=== PATIENT | male | born 1965 | race Caucasian/White ===

== ENCOUNTER 2016-12-06 03:45 | Emergency (ER) | payer MEDICAID, MEDICARE, OTHER ==
[~2016-12-06] VITALS: Ht 172.7 cm; Wt 110.0 kg
[~2016-12-06 03:45] MED LIST: LISI-170 PO
[2016-12-06 03:46] VITALS: BP 160/95
[2016-12-06] MEDS ORDERED: ONDANSETRON ODT 4 MG ONE (04:16)
[2016-12-06] MEDS ORDERED: ONDANSETRON 2MG/ML, 2ML IVPush ONE (04:30)
[2016-12-06] MEDS ORDERED: SODIUM CHLORIDE 0.9% 1,000ML IVBOLUS ONE (04:30)
[2016-12-06] MEDS ORDERED: ONDANSETRON ODT 4 MG PO ONE (04:30)
[2016-12-06] MEDS ORDERED: MORPHINE SULFATE 4 MG/ML, 1ML IVPush PRN (04:30)
[2016-12-06] MEDS ORDERED: SODIUM CHLORIDE FLUSH 10ML SYR IVF ONE (04:30)
[2016-12-06] MEDS ORDERED: ONDANSETRON 2MG/ML, 2ML ONE (04:44)
[2016-12-06] MEDS ORDERED: MORPHINE SULFATE 4 MG/ML, 1ML ONE (04:44)
[2016-12-06 05:11] LABS: ASPARTATE AMINO TRANSFERASE 21 U/L (15-37); BLOOD UREA NITROGEN 17 mg/dL (7-18)
== END 2016-12-06 06:35 | disposition home or self-care (01) ==
LOC: ED 06:30
DX: K52.9 Noninfective gastroenteritis and colitis, unspecified (principal); I10 Essential (primary) hypertension; F17.210 Nicotine dependence, cigarettes, uncomplicated
CPT/HCPCS: 36415; 80053; 83690; 85025; 96361; 96374; 96375; 99284; J2405; J7030; Q0162

== ENCOUNTER 2017-06-20 14:39 | Emergency (ER) | payer MEDICARE ==
[~2017-06-20] VITALS: Ht 172.7 cm; Wt 106.3 kg
[2017-06-20] MEDS ORDERED: SODIUM CHLORIDE 0.9% 1,000 ML IV ONE (15:48)
[2017-06-20] MEDS ORDERED: ONDANSETRON 2MG/ML, 2ML ONE (15:57)
[2017-06-20] MEDS ORDERED: PANTOPRAZOLE 40 MG IV ONE (15:57)
[2017-06-20] MEDS ORDERED: SODIUM CHLORIDE FLUSH 10ML SYR IVF ONE (16:00)
[2017-06-20] MEDS ORDERED: ONDANSETRON 2MG/ML, 2ML IVPush ONE (16:00)
[2017-06-20] MEDS ORDERED: PANTOPRAZOLE 40 MG IV IVP ONE (16:00)
[2017-06-20 16:20] LABS: HEMATOCRIT 42.8 % (39.2-51.8); HEMOGLOBIN 14.3 g/dL (13.7-18.0); WHITE BLOOD COUNT 12.2 x10^3/uL (3.4-10)
[2017-06-20 16:29] LABS: BLOOD UREA NITROGEN 13 mg/dL (7-18)
[2017-06-20 16:32] LABS: ASPARTATE AMINO TRANSFERASE 14 U/L (15-37)
[2017-06-20 17:36] VITALS: BP 132/53
== END 2017-06-20 17:38 | disposition home or self-care (01) ==
LOC: ED 15:55
DX: K29.00 Acute gastritis without bleeding (principal); F17.200 Nicotine dependence, unspecified, uncomplicated
CPT/HCPCS: 36415; 74022; 76700; 80053; 81003; 83605; 83690; 84484; 85025; 85610; 85730; 93005; 96361; 96374; 96375; 99285; C9113; J2405; J7030

== ENCOUNTER → 2018-07-07 | Outpatient (CLI) | payer MEDICARE | END | disposition home or self-care (01) | LOC: CFH 15:33 | PROVIDERS: ATTEND Registered Nurse | DX: Z12.2 Encounter for screening for malignant neoplasm of respiratory organs (principal); F17.210 Nicotine dependence, cigarettes, uncomplicated | CPT/HCPCS: G0297 ==

== ENCOUNTER → 2019-01-20 | Outpatient (CLI) | payer MEDICARE, MEDICAID ==
[~2019-01-20] MED LIST changes: +REGADENOSON 0.4 MG/5 ML SYRINGE ONE
== END | disposition home or self-care (01) ==
LOC: CFH 08:06
PROVIDERS: ATTEND Internal Medicine Cardiovascular Disease
DX: I08.8 Other rheumatic multiple valve diseases (principal); I10 Essential (primary) hypertension
CPT/HCPCS: 93306; J2785

== ENCOUNTER 2019-06-14 12:15 | Outpatient (CLI) | payer MEDICARE, MEDICAID ==
[2019-06-14] MEDS ORDERED: REGADENOSON 0.4 MG/5 ML SYRINGE ONE (16:36)
== END 2019-06-14 23:59 | disposition home or self-care (01) ==
LOC: CFH 12:15
PROVIDERS: ATTEND Internal Medicine Cardiovascular Disease
DX: I25.89 Other forms of chronic ischemic heart disease (principal); F17.200 Nicotine dependence, unspecified, uncomplicated
CPT/HCPCS: 78452; 93017; A9502; J2785

== ENCOUNTER 2019-07-21 10:46 | Outpatient (CLI) | payer MEDICAID, MEDICARE ==
[~2019-07-21 10:46] MED LIST changes: -REGADENOSON 0.4 MG/5 ML SYRINGE ONE
[2019-07-21] MEDS ORDERED: LOSA50TA14 PO (11:19)
[2019-07-21 11:47] LABS: BASOPHILS # (AUTO) 0.05 x10^3/uL (0-0.1); BASOPHILS % (AUTO) 1 % (0-1); EOSINOPHILS % (AUTO) 3 % (1-7); LYMPHOCYTES # (AUTO) 2.16 x10^3/uL (1-3.4); LYMPHOCYTES % (AUTO) 22 % (22-44); MD NO; MEAN CORPUSCULAR HEMOGLOBIN 28.3 pg (27.5-34.5); MEAN CORPUSCULAR HGB CONC 32.4 g/dL (33.2-36.2); MEAN CORPUSCULAR VOLUME 87.3 fL (81-97); MEAN PLATELET VOLUME 8.4 fL (7.4-10.4); MONOCYTES # (AUTO) 0.51 x10^3/uL (0.2-0.8); MONOCYTES % (AUTO) 5 % (2-9); NEUTROPHILS # (AUTO) 6.98 x10^3/uL (1.8-6.8); NEUTROPHILS % (AUTO) 70 % (42-75); PLATELET COUNT 240 x10^3/uL (130-400); RED BLOOD COUNT 5.32 x10^6/uL (4.38-5.82); RED CELL DISTRIBUTION WIDTH 17.3 % (9.4-14.8)
[2019-07-21 12:29] LABS: CHLORIDE 112 mmol/L (98-107)
[2019-07-21 12:31] LABS: ANION GAP 6 mmol/L (5-15); CREATININE 1.13 mg/dL (0.7-1.3)
== END 2019-07-21 23:59 | disposition home or self-care (01) ==
LOC: STAR 10:46
PROVIDERS: ATTEND Internal Medicine Cardiovascular Disease
DX: Z01.818 Encounter for other preprocedural examination (principal); I20.9 Angina pectoris, unspecified
CPT/HCPCS: 36415; 80048; 85025

== ENCOUNTER 2019-07-25 08:45 | Day surgery (SDC) | payer MEDICARE, MEDICAID ==
[2019-07-21 11:09] VITALS: BP 134/77
[~2019-07-25] VITALS: Ht 172.7 cm; Wt 106.8 kg
[~2019-07-25 08:45] MED LIST changes: +LOSA50TA14 PO
[2019-07-25] MEDS ORDERED: FENTANYL PF 100 MCG/2ML ONE (09:45)
[2019-07-25] MEDS ORDERED: NITROGLYCERIN 5 MG/ML, 10ML ONE (09:46)
[2019-07-25] MEDS ORDERED: MIDAZOLAM 1 MG/ML, 5ML ONE (09:46)
[2019-07-25] MEDS ORDERED: LIDOCAINE 2%, 20ML ONE (09:46)
== END 2019-07-25 14:34 | disposition home or self-care (01) ==
LOC: CACL 08:45
PROVIDERS: ATTEND Internal Medicine Cardiovascular Disease
DX: R93.1 Abnormal findings on diagnostic imaging of heart and coronary circulation (principal); I25.119 Atherosclerotic heart disease of native coronary artery with unspecified angina pectoris; I25.83 Coronary atherosclerosis due to lipid rich plaque; I25.5 Ischemic cardiomyopathy; I45.10 Unspecified right bundle-branch block; I10 Essential (primary) hypertension; G47.30 Sleep apnea, unspecified; R73.01 Impaired fasting glucose; G62.9 Polyneuropathy, unspecified; E66.3 Overweight; F17.210 Nicotine dependence, cigarettes, uncomplicated; Z68.36 Body mass index [BMI] 36.0-36.9, adult; Z79.899 Other long term (current) drug therapy; Z88.0 Allergy status to penicillin; Z88.8 Allergy status to other drugs, medicaments and biological substances; Z96.652 Presence of left artificial knee joint; Z82.49 Family history of ischemic heart disease and other diseases of the circulatory system
CPT/HCPCS: 93458; 99156; C1760; C1769; C1894; J2250; J3010; Q9967

== ENCOUNTER 2019-08-31 13:37 | Outpatient (CLI) | payer MEDICARE, MEDICAID | END 2019-08-31 23:59 | disposition home or self-care (01) | LOC: CFH 13:37 | PROVIDERS: ATTEND Registered Nurse | DX: Z12.2 Encounter for screening for malignant neoplasm of respiratory organs (principal); J43.8 Other emphysema; I25.10 Atherosclerotic heart disease of native coronary artery without angina pectoris; F17.210 Nicotine dependence, cigarettes, uncomplicated | CPT/HCPCS: G0297 ==

== ENCOUNTER 2020-02-15 05:19 | Emergency (ER) | payer MEDICARE, MEDICAID ==
[~2020-02-15] VITALS: Ht 172.7 cm; Wt 107.8 kg
[2020-02-15 05:23] VITALS: BP 138/82
== END 2020-02-15 05:57 ==
LOC: ED 05:51
DX: L50.6 Contact urticaria (principal); I10 Essential (primary) hypertension; F17.200 Nicotine dependence, unspecified, uncomplicated
CPT/HCPCS: 99282

== ENCOUNTER 2020-02-28 04:10 | Emergency (ER) | payer MEDICARE, MEDICAID ==
[~2020-02-28] VITALS: Ht 172.7 cm; Wt 108.1 kg
[2020-02-28 04:14] VITALS: BP 146/76
== END 2020-02-28 05:05 | disposition home or self-care (01) ==
LOC: ED 04:40
DX: R21 Rash and other nonspecific skin eruption (principal); I10 Essential (primary) hypertension; Z90.89 Acquired absence of other organs; Z88.0 Allergy status to penicillin; Z88.8 Allergy status to other drugs, medicaments and biological substances
CPT/HCPCS: 99283

== ENCOUNTER → 2020-03-08 | Day surgery (SDC) | payer MEDICARE, MEDICAID ==
[2020-03-08 12:08] LABS: ALANINE AMINOTRANSFERASE 30 U/L (12-78); ALBUMIN 3.5 g/dL (3.4-5.0); ANION GAP 4 mmol/L (5-15); CALCIUM 8.8 mg/dL (8.5-10.1); CHLORIDE 110 mmol/L (98-107); CREATININE 1.21 mg/dL (0.7-1.3)
[2020-03-08 12:11] LABS: ALKALINE PHOSPHATASE 84 U/L (45-117); BILIRUBIN,TOTAL 0.5 mg/dL (0.2-1.0); TOTAL PROTEIN 7.3 g/dL (6.4-8.2)
== END | disposition home or self-care (01) ==
LOC: STAR 10:37
PROVIDERS: ATTEND Specialist
DX: Z01.812 Encounter for preprocedural laboratory examination (principal); Z20.828 Contact with and (suspected) exposure to other viral communicable diseases; J34.2 Deviated nasal septum; J34.89 Other specified disorders of nose and nasal sinuses; G47.33 Obstructive sleep apnea (adult) (pediatric); J34.3 Hypertrophy of nasal turbinates
CPT/HCPCS: 36415; 80053; 87635

== ENCOUNTER 2020-03-13 09:04 | Day surgery (SDC) | payer MEDICARE, MEDICAID ==
[~2020-03-13] VITALS: Ht 172.7 cm; Wt 107.5 kg
[~2020-03-13 09:04] MED LIST changes: +EPHEDRINE 50 MG/ML, 1ML IVPush PRN; +HYDROmorphone 1 MG/ML, 1ML INJ IVPush PRN; +LABETALOL 5MG/ML, 20ML IV PRN; +MEPERIDINE/PF 25MG/0.5ML IVPush PRN; +ONDANSETRON 2MG/ML, 2ML IVPush PRN; +OXYcodone 5 MG/5 ML ORAL.SOL UDC PO PRN; +PROMETHAZINE 25 MG/ML, 1ML IVPush PRN; +hydrALAzine 20 MG/ML, 1ML IV PRN
[2020-03-13] MEDS ORDERED: ACETAMINOPHEN 500 MG TABLET PO STA (09:42)
[2020-03-13] MEDS ORDERED: LACTATED RINGERS 1,000 ML IV SCH (09:43)
[2020-03-13 09:44] VITALS: BP 115/78
[2020-03-13] MEDS ORDERED: CHLORHEXIDINE 15 ML UDC ONE (09:48)
[2020-03-13] MEDS ORDERED: CHLORHEXIDINE 15 ML UDC MM ONE (10:00)
[2020-03-13] MEDS ORDERED: NEOSPORIN OINT, 15GM ONE (11:20)
[2020-03-13] MEDS ORDERED: LIDOCAINE 1%-EPI 1:100K, 20ML ONE (11:21)
[2020-03-13] MEDS ORDERED: COCAINE TOPICAL SOLN 4%, 4ML ONE (11:21)
[2020-03-13] MEDS ORDERED: FENTANYL PF 250 MCG/5ML ONE (11:26)
[2020-03-13] MEDS ORDERED: MIDAZOLAM 1 MG/ML, 2ML ONE (11:26)
[2020-03-13] MEDS ORDERED: OXYMETAZOLINE NASAL SPRAY 0.05%, 15ML NAS ONE ×2 (11:30→12:18)
[2020-03-13] MEDS ORDERED: LIDOCAINE-MPF 2% ,5ML ONE (11:47)
[2020-03-13] MEDS ORDERED: KETOROLAC 30 MG/1 ML ONE (11:47)
[2020-03-13] MEDS ORDERED: ONDANSETRON 2MG/ML, 2ML ONE (11:49)
[2020-03-13] MEDS ORDERED: PROPOFOL 10 MG/ML, 20ML ONE (11:49)
[2020-03-13] MEDS ORDERED: SUCCINYLCHOLINE 20 MG/ML, 10ML ONE (11:49)
[2020-03-13] MEDS ORDERED: CEFAZOLIN 1,000 MG ONE (11:49)
[2020-03-13] MEDS ORDERED: DEXAMETHASONE 4 MG/ML, 1ML ONE (11:49)
[2020-03-13] MEDS ORDERED: EPHEDRINE 50 MG/ML, 1ML ONE (12:12)
[2020-03-13] MEDS ORDERED: PHENYLEPHRINE 10 MG/ML ONE (12:12)
[2020-03-13] MEDS ORDERED: OXYcodone 5 MG/5 ML ORAL.SOL UDC ONE (13:33)
[2020-03-13] MEDS ORDERED: FENTANYL PF 100 MCG/2ML ONE (13:33)
[2020-03-13] MEDS: FENTANYL PF 100 MCG/2ML IV PRN ×2 (13:36→13:41)
[2020-03-13] MEDS ORDERED: HYDROmorphone 1 MG/ML, 1ML INJ ONE (13:44)
== END 2020-03-13 18:20 | disposition home or self-care (01) ==
LOC: OUT 09:04
PROVIDERS: ATTEND Specialist
DX: J34.2 Deviated nasal septum (principal); J34.89 Other specified disorders of nose and nasal sinuses; G47.33 Obstructive sleep apnea (adult) (pediatric); J34.3 Hypertrophy of nasal turbinates; I10 Essential (primary) hypertension; F17.210 Nicotine dependence, cigarettes, uncomplicated; Z79.899 Other long term (current) drug therapy; Z88.0 Allergy status to penicillin; Z88.8 Allergy status to other drugs, medicaments and biological substances; Z91.048 Other nonmedicinal substance allergy status; Z98.890 Other specified postprocedural states; Z83.3 Family history of diabetes mellitus
CPT/HCPCS: 30465; 30520; C1763; J0330; J0690; J1100; J1170; J1885; J2250; J2370; J2405; J2704; J3010; J3490; J7120

== ENCOUNTER → 2020-07-26 | Outpatient (CLI) | payer MEDICARE, MEDICAID ==
[~2020-07-26] MED LIST changes: -EPHEDRINE 50 MG/ML, 1ML IVPush PRN; -HYDROmorphone 1 MG/ML, 1ML INJ IVPush PRN; -LABETALOL 5MG/ML, 20ML IV PRN; -MEPERIDINE/PF 25MG/0.5ML IVPush PRN; -ONDANSETRON 2MG/ML, 2ML IVPush PRN; -OXYcodone 5 MG/5 ML ORAL.SOL UDC PO PRN; -PROMETHAZINE 25 MG/ML, 1ML IVPush PRN; -hydrALAzine 20 MG/ML, 1ML IV PRN
== END | disposition home or self-care (01) ==
LOC: CVU 13:33
PROVIDERS: ATTEND Family Medicine
DX: I83.92 Asymptomatic varicose veins of left lower extremity (principal); I87.2 Venous insufficiency (chronic) (peripheral)
CPT/HCPCS: 93970

== ENCOUNTER 2020-10-14 08:16 | Emergency (ER) | payer MEDICARE, MEDICAID ==
[~2020-10-14] VITALS: Ht 172.7 cm; Wt 106.8 kg
[2020-10-14 08:19] VITALS: BP 186/94
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
--- NOTE | 2020-10-14 08:43 | NUR ---
DR REECE AT BEDSIDE, PT ASSESSMENT AND POC DISCUSSED AND QUESTIONS ANSWERED.
[2020-10-14] MEDS ORDERED: KETOROLAC 30 MG/1 ML ONE (08:53)
[2020-10-14] MEDS ORDERED: HYDROmorphone 1 MG/ML, 1ML INJ ONE (08:54)
[2020-10-14] MEDS ORDERED: HYDROmorphone 1 MG/ML, 1ML INJ IV ONE (09:00)
[2020-10-14] MEDS ORDERED: KETOROLAC 30 MG/1 ML IM ONE (09:00)
[2020-10-14] MEDS ORDERED: HYDROmorphone 1 MG/ML, 1ML INJ IM ONE (09:00)
--- NOTE | 2020-10-14 09:01 | NUR ---
REPORT RECEIVED FROM AILEEN LEVY. PAIN MEDICATION GIVEN PER SEP. PT STATED THAT HE CALLED FRIEND FOR A RIDE HOME.
--- NOTE | 2020-10-14 09:27 | NUR ---
DISCHARGE INSTRUCTIONS REVIEWED WITH PT. ALL QUESTIONS ANSWERED AT THIS TIME
== END 2020-10-14 09:29 | disposition home or self-care (01) ==
LOC: ED 09:09
DX: K08.89 Other specified disorders of teeth and supporting structures (principal); I10 Essential (primary) hypertension; Z90.89 Acquired absence of other organs
CPT/HCPCS: 96372; 99284; J1170; J1885